=== PATIENT | male | born 1960 | race Caucasian/White ===

== ENCOUNTER 2019-02-15 08:07 | Emergency (ER) | payer MEDICAID ==
[2019-02-15 08:07] VITALS: BMI 32.2
[2019-02-15 08:17] VITALS: TEMP 98.2
--- NOTE | 2019-02-15 09:54 | C.PDOC ---
History Of Present Illness 58 y/o male,w/PMhx of diabetes, brought to ER by ambulance, complaining of dizziness which began when he woke up in the morning today. Patient describes the dizziness as the "room spinning." Patient reports that he was having difficulty ambulating outside because of the dizziness. He states that he felt like he was about to fall,but he did not have a fall. A bystander saw him and called for the ambulance.Denies having falls, injuries, CP,SOB, nausea, vomiting, abdominal pain, and extremity weakness/numbness. Time Seen by Provider: 02/15/19 08:26 Chief Complaint (Nursing): Dizziness/Lightheaded History Per: Patient History/Exam Limitations: no limitations Onset/Duration Of Symptoms: Hrs Current Symptoms Are (Timing): Still Present Severity: Moderate Past Medical History Reviewed: Historical Data, Nursing Documentation, Vital Signs Vital Signs: Last Vital Signs Temp 98.2 F 02/15/19 08:08 Pulse 86 02/15/19 08:08 Resp 14 02/15/19 08:08 BP 128/83 02/15/19 08:08 Pulse Ox 97 02/15/19 08:08 - Medical History PMH: Diabetes, Schizophrenia Denies: Hepatitis, HIV, HTN, Chronic Kidney Disease, Seizures, Sexually Transmitted Disease Surgical History: Appendectomy - [facility] EXCISION OF DESCENDING COLON, ENDO (09/12/16) EXCISION OF STOMACH, ENDO, DIAGN (09/12/16) Family History: States: No Known Family Hx - Social History Hx Tobacco Use: Yes Hx Alcohol Use: No Hx Substance Use: No - Immunization History Hx Tetanus Toxoid Vaccination: No Hx Influenza Vaccination: Yes (2018) Hx Pneumococcal Vaccination: No Review Of Systems Except As Marked, All Systems Reviewed And Found Negative. Constitutional: Negative for: Fever, Chills Cardiovascular: Negative for: Chest Pain Respiratory: Negative for: Shortness of Breath Gastrointestinal: Negative for: Nausea, Vomiting, Abdominal Pain Neurological: Positive for: Dizziness. Negative for: Weakness, Numbness Physical Exam - Physical Exam Appears: Non-toxic, No Acute Distress Skin: Normal Color, Warm, Dry, No Rash Head: Atraumatic, Normacephalic Eye(s): bilateral: Normal Inspection Ear(s): Bilateral: Other (excess cerumen) Nose: Normal Oral Mucosa: Moist Throat: No Erythema, No Exudate Neck: Normal ROM, Supple Chest: Symmetrical, No Tenderness Cardiovascular: Rhythm Regular, No Friction Rub, No Murmur Respiratory: Normal Breath Sounds, No Rales, No Rhonchi, No Wheezing Gastrointestinal/Abdominal: Normal Exam, Soft, No Tenderness, No Guarding, No Rebound Back: Normal Inspection, No CVA Tenderness Extremity: Normal ROM, No Tenderness, No Swelling Neurological/Psych: Oriented x3, Normal Speech Gait: Steady ED Course And Treatment O2 Sat by Pulse Oximetry: 97 (RA) Pulse Ox Interpretation: Normal Medical Decision Making Medical Decision Making: Plan: --EKG --Glucose,POC --Meclizine PO On re-exam, the patient reports improvement of symptoms. Lungs are CTA, heart is RRR, abdomen is soft, non-tender and tolerating PO well. Pt is ambulatory in the ED with steady gait. Follow up with the medical doctor within 1-2 days. Return if worsened. Disposition - Disposition Referrals: [facility] [Outside] Disposition: HOME/ ROUTINE Disposition Time: 11:02 Condition: GOOD Additional Instructions: Follow up with the medical doctor within 1-2 days. Return if worsened. 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 - Scribe Statement The provider has reviewed the documentation as recorded by the Destiny Ridley Provider Attestation All medical record entries made by the Flower[facility]elle were at my direction and personally dictated by me. I have reviewed the chart and agree that the record accurately reflects my personal performance of the history, physical exam, medical decision making, and the department course for this patient. I have also personally directed, reviewed, and agree with the discharge instructions and disposition.
[2019-02-15 11:17] VITALS: BP 119/75; PULSE 72; RESP 18
[2019-02-15 17:28] VITALS: O2SAT 97
--- NOTE | 2019-02-16 20:30 | CARD ---
APPROVED REPORT Date of service: 02/15/2019 EKG Measurement Heart [id number] <Conclusion> Normal sinus rhythm Septal infarct, age undetermined Abnormal ECG
== END 2019-02-15 11:17 | disposition home or self-care (01) ==
LOC: C.ER 08:07
DX: R42 Dizziness and giddiness (principal); E11.9 Type 2 diabetes mellitus without complications; F20.9 Schizophrenia, unspecified; Z72.0 Tobacco use